=== PATIENT | female | born 1940 | race Two or more races ===

== ENCOUNTER 2018-09-19 22:07 | Inpatient (IN) | payer MEDICARE, BC ==
[~2018-09-19] VITALS: Ht 152.4 cm; Wt 53.1 kg
--- NOTE | 2018-09-19 22:20 | NUR ---
Patient brought in by w/c. Accompanied by 2 relatives. A/Ox4. Speech clear, speaks in complete sentences. No neuro deficits. Patient came in for c/o right hip+wrist pain s/p falling at a family republican. Patient reported that she was trying to help a family member who was vomiting, and they both fell and patient fell on right side. Respiratory even and unlabored, no cough, no sob. No cardiovascular distress, pulses palpable. No GI/ distress noted. Patient inbed at lowest position, side rails upx2, call light within reach. Fall precautions implemented per protocol.
--- NOTE | 2018-09-19 23:07 | NUR ---
Patient went down to CT in stable condition.
[2018-09-19] MEDS ORDERED: vitamin d PO (23:31)
[2018-09-19] MEDS ORDERED: ASPI-605 PO (23:31)
[2018-09-19] MEDS ORDERED: LACT1CAP71 PO (23:31)
[2018-09-19] MEDS ORDERED: LISI-607 PO (23:31)
[2018-09-19] MEDS ORDERED: OMEP40CA37 PO (23:31)
[2018-09-19] MEDS ORDERED: CLID1CAP PO (23:31)
[2018-09-19] MEDS ORDERED: DILT180C66 PO (23:31)
[2018-09-19] MEDS ORDERED: WHEA1POW6 PO (23:31)
[2018-09-19] MEDS ORDERED: SIMV5TAB59 PO (23:31)
[2018-09-19] MEDS ORDERED: VIT1CAPS44 PO (23:31)
[2018-09-19] MEDS ORDERED: ONDANSETRON 4 MG/2 ML VIAL ONE (23:38)
[2018-09-19] MEDS ORDERED: MORPHINE SULFATE 2 MG/1 ML DISP.SYRIN ONE (23:38)
[2018-09-19] MEDS ORDERED: MORPHINE SULFATE 2 MG/1 ML DISP.SYRIN IV ONE (23:45)
[2018-09-19] MEDS ORDERED: ONDANSETRON 4 MG/2 ML VIAL IV ONE (23:45)
--- NOTE | 2018-09-19 23:48 | NUR ---
CORRECTION: IV site for Zofran 4mg, and Morphine 2MG = RFA 20G
--- NOTE | 2018-09-20 00:39 | NUR ---
[facility] called for panel.
[2018-09-20 00:50] LABS: BASOPHILS % (AUTO) 0.2 % (0.0-2.0); EOSINOPHILS % (AUTO) 0.4 % (0.0-7.0); HEMATOCRIT 32.7 % (31.2-41.9); HEMOGLOBIN 10.3 g/dL (10.9-14.3); LYMPHOCYTES # (AUTO) 0.8 K/uL (20.0-40.0); MEAN CORPUSCULAR HEMOGLOBIN 20.2 uug (24.7-32.8); MEAN CORPUSCULAR HGB CONC 32 g/dL (32.3-35.6); MEAN CORPUSCULAR VOLUME 64.1 fL (75.5-95.3); MONOCYTES # (AUTO) 0.5 K/uL (2.0-10.0); NEUTROPHILS # (AUTO) 10.4 K/uL (1.8-8.9); NEUTROPHILS % (AUTO) 88.4 % (38.5-71.5); PLATELET COUNT (AUTO) 221 K/uL (179-408); WHITE BLOOD COUNT (AUTO) 11.8 K/uL (3.8-11.8)
[2018-09-20 00:51] LABS: ALANINE AMINOTRANSFERASE 26 U/L (14-59); ALKALINE PHOSPHATASE 107 U/L (50-136); ASPARTATE AMINOTRANSFERASE 18 U/L (15-37); BILIRUBIN,DIRECT 0.1 mg/dL (0.0-0.2); BILIRUBIN,TOTAL 0.2 mg/dL (0.2-1.0); CARBON DIOXIDE 29 mmol/L (21-32); CHLORIDE 106 mmol/L (98-107); CREATININE 0.8 mg/dL (0.6-1.3); GLUCOSE 132 mg/dL (74-106); UREA NITROGEN, BLOOD 19 mg/dL (7-18)
--- NOTE | 2018-09-20 00:54 | NUR ---
IV SITE FOR NaCL fluid = RFA 20G
[2018-09-20] MEDS ORDERED: IV NS 1000 ML 1,000 ML IV ONE (01:00)
--- NOTE | 2018-09-20 01:12 | NUR ---
Report given to WANDA Khan
[2018-09-20] MEDS ORDERED: CLIDINIUM BR/CHLORDIAZEPOXIDE CAPSULE PO PRN ×2 (01:15→07:30)
[2018-09-20] MEDS ORDERED: HYDROCODONE/APAP 5-325MG TABLET PO PRN (01:15)
[2018-09-20] MEDS ORDERED: Z GUARD REMEDY PASTE 57 GM TUBE TOP PRN (01:15)
[2018-09-20] MEDS ORDERED: ACETAMINOPHEN 325 MG TABLET PO PRN (01:15)
[2018-09-20] MEDS ORDERED: MAGNESIUM HYDROXIDE 30 ML LIQUID UDC PO PRN (01:15)
[2018-09-20 01:17] LABS: BAND % (MANUAL) 1 % (0-10); LYMPHOCYTES % (MANUAL) 6 % (20-40); MONOCYTES % (MANUAL) 5 % (2-10); NEUTROPHILS % (MANUAL) 88 % (42-75)
--- NOTE | 2018-09-20 01:45 | NUR ---
Received patient from ED via gurney accompanied by WANDA Tineo. Patient is alert, awake and oriented x 4 but unable to ambulate due to hip fracture. Patient is on room air, tolerated. She has an IV access on her right forearm, 20g, to ongoing IV fluid of NS at 75mls/hr. Per ED RN, patient refused to have pollock catheter or straight catheterization done, urine sample not yet collected. Noted with splint on the left arm for the left wrist fracture. No complaints of pain at this time. Air mattress and DVT pumps ordered. Patient oriented to unit and how to use call light. Patient is sinus rhythm on tele monitor. Bed in low position, locked, side rails up x2, call light within reach. Noise and lights subdued. Will continue to monitor.
--- NOTE | 2018-09-20 01:51 | NUR ---
Patient transported to TELE in stable condition.
[2018-09-20 02:00] VITALS: BP 139/68
[2018-09-20 05:00] VITALS: BP 122/60
--- NOTE | 2018-09-20 05:39 | NUR ---
Patient slept well. Still with IV access on her right forearm, 20g, to ongoing IV fluid of NS at 75mls/hr. With splint on the left arm for the left wrist fracture. No complaints of pain made. Air mattress and DVT pumps ordered. Ensured safety and comfort.
--- NOTE | 2018-09-20 07:20 | NUR ---
Received patient in bed laying comfortably, alert and oriented, no s/s sob noted at this time, no c/o pain at this time, IV intact and patent, bed in low position, side rails up x2 , bed alarm on. will continue to monitor and provide safety at all time. continue treatment plan.
[2018-09-20 07:50] LABS: *BILIRUBIN,URIN NEGATIVE (NEGATIVE); *BLOOD, URINE 1+ (NEGATIVE); *CLARITY,URINE CLEAR (CLEAR); *COLOR,URINE YELLOW (YELLOW); *KETONES,URINE NEGATIVE (NEGATIVE); *UROBILINOGEN,URINE 0.2 E.U./dl (NORMAL); LEUKOCYTE ESTERASE ,URINE TRACE (NEGATIVE); NITRITE, URINE NEGATIVE (NEGATIVE); PH,URINE 6.5 (5.0-8.0); UGLUCOSE NEGATIVE (NEGATIVE)
[2018-09-20] MEDS: NUTRISOURCE FIBER 4 GM PACKET PO SCH (08:00)
[2018-09-20 08:01] LABS: SQUAMOUS EPITHELIAL CELL,UR FEW /HPF (NONE SEEN)
[2018-09-20 08:02] LABS: BACTERIA,URINE NONE SEEN /HPF (NONE SEEN)
[2018-09-20] MEDS: ASPIRIN EC 81 MG TABLET.DR PO SCH (09:00)
[2018-09-20] MEDS: DILTIAZEM HCL CD 180 MG CAP.SR.24H PO SCH (09:00)
[2018-09-20] MEDS: ACIDOPHILUS/BULGARICUS CHEW TAB PO SCH (09:00)
[2018-09-20] MEDS: BETA CAROTENE/VIT C & E/MIN TABLET PO SCH ×2 (09:00→17:43)
[2018-09-20] MEDS ORDERED: Medication Not On Formulary EA (Lactobacillus Combo No.11 (Probiotic) 1 EACH) PO SCH (09:00)
[2018-09-20] MEDS ORDERED: WHEAT DEXTRIN PO SCH (09:00)
[2018-09-20] MEDS ORDERED: Medication Not On Formulary EA (Vit C/E/Zn/Coppr/Lutein/Zeaxan (Preservision Areds 2 Sof PO SCH (09:00)
[2018-09-20] MEDS ORDERED: Medication Not On Formulary EA (Omeprazole 40 MG) PO SCH (09:00)
[2018-09-20] MEDS: MORPHINE SULFATE 2 MG/1 ML DISP.SYRIN IV PRN ×3 (10:13→20:51)
[2018-09-20 10:51] LABS: IRON, SERUM 40 ug/dL (50-175)
[2018-09-20 11:41] VITALS: BP 151/61
--- NOTE | 2018-09-20 11:45 | NUR ---
PATIENT WENT FOR HAVE CT SCAN
[2018-09-20] MEDS: PANTOPRAZOLE SODIUM 40 MG TABLET.DR PO SCH (14:39)
[2018-09-20] MEDS: LISINOPRIL 5 MG TABLET PO SCH (14:40)
[2018-09-20 14:52] VITALS: BP 145/70
[2018-09-20] MEDS ORDERED: ERGO500040 PO (18:14)
--- NOTE | 2018-09-20 19:00 | NUR ---
patient in bed laying comfortably, alert and oriented, no s/s sob noted at this time, no c/o pain at this time, IV intact and patent, bed in low position, side rails up x2 , bed alarm on. will continue to monitor and provide safety at all time. all needs attended. will continue treatment plan with night night.
--- NOTE | 2018-09-20 19:35 | NUR ---
Received patient awake in bed, not in any form of distress. Noted family members present at bedside. Still with IV access on her right forearm, 20g, to saline lock. Still with splint on the left arm for the left wrist fracture. Noted patient is for surgery tomorrow, consent at chart. Will place patient on NPO after midnight. Patient with complaints of pain, will give PRN medications. Bed in low position, locked, side rails up x 2, call light within reach. Will continue to monitor.
[2018-09-20 20:00] VITALS: BP 139/75
--- NOTE | 2018-09-20 20:00 | NUR ---
Patient has no IV fluids running, verified with Dr. Siddiqui if he will order any fluids for the patient once she in on NPO.
[2018-09-20] MEDS: SIMVASTATIN 10 MG TABLET PO SCH (20:51)
[2018-09-20] MEDS: ONDANSETRON 4 MG/2 ML VIAL IV PRN (20:51)
[2018-09-20] MEDS: IV D5 1/2 NS 1000 ML 1,000 ML IV PRN (21:47)
[2018-09-21] VITALS (7 sets, daily range): BP systolic 124–156; BP diastolic 58–78
[2018-09-21] MEDS: MORPHINE SULFATE 2 MG/1 ML DISP.SYRIN IV PRN ×2 (02:31→10:50)
[2018-09-21] MEDS: ONDANSETRON 4 MG/2 ML VIAL IV PRN ×2 (02:36→18:17)
--- NOTE | 2018-09-21 05:55 | NUR ---
Patient slept intermittently throughout the night. With IV fluid running on right wrist IV access. Maintained NPO after midnight for surgical procedure this morning, consent on chart. With complaints of pain, prn medications given. Ensured safety and comfort. Will continue to monitor.
[2018-09-21] MEDS: PANTOPRAZOLE SODIUM 40 MG TABLET.DR PO SCH (06:30)
--- NOTE | 2018-09-21 07:00 | NUR ---
Upon removal of her dentures, patient gagged and vomited approximately 100ml of dark brown liquid. Event endorsed in detail to incoming day shift nurse. Also endorsed to WANDA Rodgers that per Dr. Lai patient can have cardizem this morning prior to surgery if blood pressure is within normal limits.
[2018-09-21] MEDS ORDERED: PROPOFOL 200 MG/20 ML BOTTLE IV ONE (07:19)
[2018-09-21] MEDS ORDERED: SEVOFLURANE 250 ML BOTTLE IH ONE (07:19)
[2018-09-21] MEDS ORDERED: IV NORMAL SALINE 1000 ML BAG IV ONE (07:19)
[2018-09-21] MEDS ORDERED: EPHEDRINE SULFATE 50 MG/ML AMPUL MC ONE (07:19)
[2018-09-21] MEDS ORDERED: PHENYLEPHRINE 10 MG/1 ML VIAL MC ONE (07:19)
[2018-09-21] MEDS ORDERED: ONDANSETRON 4 MG/2 ML VIAL IV ONE (07:19)
[2018-09-21 07:43] LABS: CARBON DIOXIDE 27 mmol/L (21-32); CHLORIDE 102 mmol/L (98-107); CHOLESTEROL 184 mg/dL (<200); CREATININE 0.7 mg/dL (0.6-1.3); GLUCOSE 129 mg/dL (74-106); HDL CHOLESTEROL 63 mg/dL (40-60); MAGNESIUM 1.9 mg/dL (1.8-2.4); PHOSPHOROUS 3.1 mg/dL (2.5-4.9); POTASSIUM 3.7 mmol/L (3.5-5.1); TRIGLYCERIDES 84 MG/DL (30-150); UREA NITROGEN, BLOOD 9 mg/dL (7-18)
[2018-09-21 07:52] LABS: THYROID STIMULATING HORMONE 0.791 mIU/mL (0.358-3.740)
[2018-09-21] MEDS: NUTRISOURCE FIBER 4 GM PACKET PO SCH (08:00)
[2018-09-21] MEDS: ASPIRIN EC 81 MG TABLET.DR PO SCH (09:00)
[2018-09-21 09:03] LABS: BASOPHILS % (AUTO) 0.5 % (0.0-2.0); EOSINOPHILS % (AUTO) 0.1 % (0.0-7.0); HEMATOCRIT 34.1 % (37-47); HEMOGLOBIN 10.9 G/DL (12.0-16.0); LYMPHOCYTES # (AUTO) 0.5 K/UL (0.8-4.8); LYMPHOCYTES % (AUTO) 4.7 % (20.5-51.5); MEAN CORPUSCULAR HEMOGLOBIN 20.4 UUG (27.0-31.0); MEAN CORPUSCULAR HGB CONC 32 g/dL (32.0-37.0); MEAN CORPUSCULAR VOLUME 64.2 FL (81.0-99.0); MONOCYTES # (AUTO) 0.4 K/UL (0.1-1.30); MONOCYTES % (AUTO) 3.4 % (0.0-11.0); NEUTROPHILS # (AUTO) 9.4 K/UL (1.8-8.9); NEUTROPHILS % (AUTO) 91.3 % (38.5-71.5); PLATELET COUNT (AUTO) 204 K/UL (150-450); RED BLOOD CELL COUNT(AUTO) 5.31 MIL/UL (4.2-5.4); WHITE BLOOD COUNT (AUTO) 10.3 K/UL (4.0-11.2)
[2018-09-21 09:12] LABS: BAND % (MANUAL) 8 % (0-10); LYMPHOCYTES % (MANUAL) 6 % (20-40); MONOCYTES % (MANUAL) 6 % (2-10); NEUTROPHILS % (MANUAL) 80 % (42-75)
[2018-09-21] MEDS: BETA CAROTENE/VIT C & E/MIN TABLET PO SCH ×2 (09:28→17:00)
[2018-09-21] MEDS: ACIDOPHILUS/BULGARICUS CHEW TAB PO SCH (09:28)
[2018-09-21] MEDS: LISINOPRIL 5 MG TABLET PO SCH (09:42)
[2018-09-21] MEDS: DILTIAZEM HCL CD 180 MG CAP.SR.24H PO SCH (09:43)
[2018-09-21] MEDS ORDERED: POLYMYXIN B SULFATE 500,000 UNITS, BACITRACIN 50,000 UNITS, NORMAL SALINE 20 ML MC ONE ×3 (11:00)
[2018-09-21] MEDS ORDERED: BUPIVACAINE 0.25% 30 ML VIAL ONE (11:22)
[2018-09-21] MEDS ORDERED: FENTANYL CITRATE 100 MCG/2 ML AMPUL ONE (14:56)
[2018-09-21] MEDS ORDERED: MIDAZOLAM HCL 2 MG/2 ML VIAL ONE (14:56)
[2018-09-21] MEDS ORDERED: VANCOMYCIN 1000 MG VIAL ONE (15:11)
[2018-09-21 17:14] LABS: EOSINOPHILS % (AUTO) 0.1 % (0.0-7.0); HEMATOCRIT 32.4 % (31.2-41.9); HEMOGLOBIN 10.2 g/dL (10.9-14.3); LYMPHOCYTES # (AUTO) 0.4 K/uL (20.0-40.0); MEAN CORPUSCULAR HEMOGLOBIN 20.3 uug (24.7-32.8); MEAN CORPUSCULAR HGB CONC 32 g/dL (32.3-35.6); MEAN CORPUSCULAR VOLUME 64.3 fL (75.5-95.3); MONOCYTES # (AUTO) 0.5 K/uL (2.0-10.0); MONOCYTES % (AUTO) 4.7 % (0.0-11.0); NEUTROPHILS # (AUTO) 9.5 K/uL (1.8-8.9); NEUTROPHILS % (AUTO) 91.2 % (38.5-71.5); PLATELET COUNT (AUTO) 210 K/uL (179-408); RED BLOOD CELL COUNT(AUTO) 5.04 MIL/uL (3.63-4.92); WHITE BLOOD COUNT (AUTO) 10.4 K/uL (3.8-11.8)
[2018-09-21 17:18] LABS: CARBON DIOXIDE 26 mmol/L (21-32); CHLORIDE 101 mmol/L (98-107); CREATININE 0.7 mg/dL (0.6-1.3); GLUCOSE 156 mg/dL (74-106); POTASSIUM 3.6 mmol/L (3.5-5.1); UREA NITROGEN, BLOOD 10 mg/dL (7-18)
[2018-09-21 17:41] LABS: BAND % (MANUAL) 16 % (0-10); LYMPHOCYTES % (MANUAL) 4 % (20-40); MONOCYTES % (MANUAL) 5 % (2-10); NEUTROPHILS % (MANUAL) 75 % (42-75)
[2018-09-21] MEDS ORDERED: HYDROCODONE/APAP 5-325MG TABLET PO PRN (19:45)
--- NOTE | 2018-09-21 20:00 | NUR ---
received patient and report from WANDA chatman. patient is in bed. patient Has IV line without fluids running. Will clarify orders. Patient complains of pain 7/10. No signs/symptoms of bleeding or infection. Will continue to monitor.
[2018-09-21] MEDS: SIMVASTATIN 10 MG TABLET PO SCH (20:41)
[2018-09-21] MEDS: HYDROCODONE/APAP 5-325MG TABLET PO PRN (20:46)
[2018-09-21] MEDS ORDERED: MUPIROCIN 2% OINT 22 GM TUBE NS SCH (21:00)
[2018-09-21] MEDS: IV D5 1/2 NS 1000 ML 1,000 ML IV PRN (23:50)
[2018-09-22] VITALS (7 sets, daily range): BP systolic 89–117; BP diastolic 39–67
[2018-09-22] MEDS ORDERED: VANCOMYCIN IV 1 G in PREMIXED 0 EACH IV SCH ×2 (04:00→16:00)
--- NOTE | 2018-09-22 04:00 | NUR ---
noted patient blood pressure was 93/17. Patient shows no signs or symptoms of bleeding. Patient denies any dizziness or lethargy. Patient is alert and oriented and denies any distress. Will continue to monitor.
--- NOTE | 2018-09-22 06:19 | NUR ---
received patient in bed. patient complained of left hip pain post surgery. patient was managed and patient rested comfortably through out the night. Patient denies any pain or discomfort at this time. Noted patietn bp to be low at 0400. patient not showing any s/s of bleeding or infection. Will continue to monitor and endorse plan of care to day shift nurse.
[2018-09-22] MEDS: PANTOPRAZOLE SODIUM 40 MG TABLET.DR PO SCH (06:38)
[2018-09-22] MEDS: NUTRISOURCE FIBER 4 GM PACKET PO SCH (08:00)
[2018-09-22] MEDS: DILTIAZEM HCL CD 180 MG CAP.SR.24H PO SCH (08:59)
[2018-09-22] MEDS: ACIDOPHILUS/BULGARICUS CHEW TAB PO SCH (09:00)
[2018-09-22] MEDS: LISINOPRIL 5 MG TABLET PO SCH (09:00)
[2018-09-22] MEDS: BETA CAROTENE/VIT C & E/MIN TABLET PO SCH ×2 (09:00→16:46)
[2018-09-22] MEDS: ASPIRIN EC 81 MG TABLET.DR PO SCH (09:00)
[2018-09-22] MEDS: ENOXAPARIN SODIUM 40 MG/0.4 ML DISP.SYRIN SQ SCH (09:02)
--- NOTE | 2018-09-22 11:22 | NUR ---
SBP in the upper 80's 89/39 with heart rate of 84n patient AAOX4. [place] Nailer Dr. Lai at bedside at this moment and aware. also informed that pt. received her antihypertensives and also medicated for pain as requested. See order hx.
[2018-09-22] MEDS: IV D5 1/2 NS 1000 ML 1,000 ML IV PRN (14:25)
[2018-09-22 15:14] LABS: CARBON DIOXIDE 24 mmol/L (21-32); CHLORIDE 100 mmol/L (98-107); GLUCOSE 157 mg/dL (74-106); POTASSIUM 3.8 mmol/L (3.5-5.1); UREA NITROGEN, BLOOD 20 mg/dL (7-18)
[2018-09-22 15:16] LABS: EOSINOPHILS # (AUTO) 0.1 K/uL (0.0-0.7); EOSINOPHILS % (AUTO) 1.5 % (0.0-7.0); HEMATOCRIT 23.9 % (31.2-41.9); LYMPHOCYTES # (AUTO) 0.8 K/uL (20.0-40.0); LYMPHOCYTES % (AUTO) 14.9 % (20.5-51.5); MEAN CORPUSCULAR HEMOGLOBIN 20.3 uug (24.7-32.8); MEAN CORPUSCULAR HGB CONC 32 g/dL (32.3-35.6); MEAN CORPUSCULAR VOLUME 63.9 fL (75.5-95.3); MONOCYTES # (AUTO) 0.3 K/uL (2.0-10.0); MONOCYTES % (AUTO) 6.5 % (0.0-11.0); NEUTROPHILS # (AUTO) 3.9 K/uL (1.8-8.9); NEUTROPHILS % (AUTO) 77.1 % (38.5-71.5); PLATELET COUNT (AUTO) 162 K/uL (179-408); RED BLOOD CELL COUNT(AUTO) 3.74 MIL/uL (3.63-4.92); WHITE BLOOD COUNT (AUTO) 5.1 K/uL (3.8-11.8)
[2018-09-22 15:26] LABS: HEMOGLOBIN 7.6 g/dL (10.9-14.3)
[2018-09-22 16:16] LABS: BAND % (MANUAL) 6 % (0-10); NEUTROPHILS % (MANUAL) 74 % (42-75)
[2018-09-22 16:17] LABS: EOSINOPHILS % (MANUAL) 2 % (0-8); LYMPHOCYTES % (MANUAL) 13 % (20-40); MONOCYTES % (MANUAL) 5 % (2-10)
--- NOTE | 2018-09-22 19:10 | NUR ---
Received patient awake, alert and oriented with family at bedside. Denies any pain/discomforts at this time. Continue care as planned.
[2018-09-22] MEDS: MIRALAX 17 GM POWD.PACK PO SCH (20:22)
[2018-09-22] MEDS: SIMVASTATIN 10 MG TABLET PO SCH (20:22)
--- NOTE | 2018-09-22 20:47 | NUR ---
MT reported that patient rhythm converted to Afutter, asymptomatic, Vs taken 100/61, HR 96. Denies any s/s. Tried to call Dr Nnamdi Ho several times but line busy. Will attempt again later. Charge Nurse aware.
[2018-09-22 20:57] LABS: BASOPHILS % (AUTO) 0.3 % (0.0-2.0); EOSINOPHILS # (AUTO) 0.1 K/uL (0.0-0.7); EOSINOPHILS % (AUTO) 2.6 % (0.0-7.0); HEMATOCRIT 24.2 % (31.2-41.9); HEMOGLOBIN 7.8 g/dL (10.9-14.3); LYMPHOCYTES # (AUTO) 1.1 K/uL (20.0-40.0); MEAN CORPUSCULAR HEMOGLOBIN 20.6 uug (24.7-32.8); MEAN CORPUSCULAR HGB CONC 32 g/dL (32.3-35.6); MEAN CORPUSCULAR VOLUME 64.2 fL (75.5-95.3); MONOCYTES # (AUTO) 0.5 K/uL (2.0-10.0); MONOCYTES % (AUTO) 9.1 % (0.0-11.0); NEUTROPHILS # (AUTO) 3.4 K/uL (1.8-8.9); PLATELET COUNT (AUTO) 161 K/uL (179-408); RED BLOOD CELL COUNT(AUTO) 3.77 MIL/uL (3.63-4.92); WHITE BLOOD COUNT (AUTO) 5.1 K/uL (3.8-11.8)
--- NOTE | 2018-09-22 21:40 | NUR ---
Called Dr Lai regarding patient heart rhythm but been instructed to call the bath solution maker manager council. Attempted to Call Dr. Ho but because of heavy calling unable to accept call at this time.
--- NOTE | 2018-09-22 22:15 | NUR ---
Left message to [employer] answering service. Anticipating oJsselyn Persaud NP to return the call.
--- NOTE | 2018-09-22 22:45 | NUR ---
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 Anticipating call from her.
--- NOTE | 2018-09-22 22:51 | NUR ---
Patient converted to SR now per MT. Patient sleeping at this time.
--- NOTE | 2018-09-22 23:20 | NUR ---
Dr Pastrana called back with no new order given. Charge nurse made aware.
[2018-09-23 03:23] VITALS: BP 107/61
[2018-09-23] MEDS: IV D5 1/2 NS 1000 ML 1,000 ML IV PRN (04:56)
[2018-09-23] MEDS: PANTOPRAZOLE SODIUM 40 MG TABLET.DR PO SCH (06:13)
[2018-09-23 07:16] LABS: BASOPHILS % (AUTO) 0.3 % (0.0-2.0); EOSINOPHILS # (AUTO) 0.2 K/uL (0.0-0.7); EOSINOPHILS % (AUTO) 4.3 % (0.0-7.0); HEMATOCRIT 22.2 % (31.2-41.9); LYMPHOCYTES % (AUTO) 21.2 % (20.5-51.5); MEAN CORPUSCULAR HEMOGLOBIN 20.5 uug (24.7-32.8); MEAN CORPUSCULAR HGB CONC 32 g/dL (32.3-35.6); MEAN CORPUSCULAR VOLUME 63.9 fL (75.5-95.3); MONOCYTES # (AUTO) 0.4 K/uL (2.0-10.0); MONOCYTES % (AUTO) 7.6 % (0.0-11.0); NEUTROPHILS # (AUTO) 3.2 K/uL (1.8-8.9); NEUTROPHILS % (AUTO) 66.6 % (38.5-71.5); PLATELET COUNT (AUTO) 167 K/uL (179-408); RED BLOOD CELL COUNT(AUTO) 3.47 MIL/uL (3.63-4.92); WHITE BLOOD COUNT (AUTO) 4.8 K/uL (3.8-11.8)
[2018-09-23 07:22] LABS: HEMOGLOBIN 7.1 g/dL (10.9-14.3)
[2018-09-23 07:29] LABS: CARBON DIOXIDE 26 mmol/L (21-32); CHLORIDE 105 mmol/L (98-107); CREATININE 0.8 mg/dL (0.6-1.3); GLUCOSE 111 mg/dL (74-106); MAGNESIUM 2.2 mg/dL (1.8-2.4); PHOSPHOROUS 2.7 mg/dL (2.5-4.9); POTASSIUM 3.8 mmol/L (3.5-5.1); UREA NITROGEN, BLOOD 13 mg/dL (7-18)
[2018-09-23 08:00] VITALS: BP 121/62
[2018-09-23] MEDS: BETA CAROTENE/VIT C & E/MIN TABLET PO SCH (09:23)
[2018-09-23] MEDS: HYDROCODONE/APAP 5-325MG TABLET PO PRN ×2 (09:23→13:53)
[2018-09-23] MEDS: MIRALAX 17 GM POWD.PACK PO SCH (09:23)
[2018-09-23] MEDS: ACIDOPHILUS/BULGARICUS CHEW TAB PO SCH (09:23)
[2018-09-23] MEDS: DILTIAZEM HCL CD 180 MG CAP.SR.24H PO SCH (09:24)
[2018-09-23] MEDS: ASPIRIN EC 81 MG TABLET.DR PO SCH (09:24)
[2018-09-23] MEDS: ENOXAPARIN SODIUM 40 MG/0.4 ML DISP.SYRIN SQ SCH (09:28)
[2018-09-23] MEDS: NUTRISOURCE FIBER 4 GM PACKET PO SCH (09:40)
--- NOTE | 2018-09-23 10:30 | NUR ---
Patient received Glen 5mg/325 1 tab po prior to ambulation, pain level 5/10, and remains 4/5 after ambulation. Biju Pena RN
[2018-09-23] MEDS ORDERED: ENOX40DI SQ (10:57)
[2018-09-23] MEDS ORDERED: PANT40TA2 PO (10:57)
[2018-09-23] MEDS ORDERED: BETA1TAB19 PO (10:57)
[2018-09-23] MEDS ORDERED: POLY17PO4 PO (10:57)
[2018-09-23] MEDS ORDERED: Wheat Dextrin PO (10:57)
[2018-09-23] MEDS ORDERED: SIMV10TA6 PO (10:57)
[2018-09-23 11:00] VITALS: BP 154/55
--- NOTE | 2018-09-23 11:00 | NUR ---
Patient seen by PT with daughter at bedside. Patient has a left hand splint, that was removed by surgeon yesterday. Physical Therapy walked the patient with a cane only due to limitation of left hand. Biju Pena RN
--- NOTE | 2018-09-23 16:00 | NUR ---
Patient transferred to Acute Rehab, and report endorsed to Adriana MUÑOZ receiving patient. Biju Pena RN
== END 2018-09-23 16:00 | DRG 481 ==
LOC: ER 22:11 → TELE3 09-20 01:16
PROVIDERS: ADMIT Nurse Practitioner Acute Care; ATTEND Internal Medicine
PROC: 0QS704Z Reposition Left Upper Femur with Internal Fixation Device, Open Approach (ICD-10-PCS; principal; 2018-09-21)
DX: M80.852A Other osteoporosis with current pathological fracture, left femur, initial encounter for fracture (principal); S59.202A Unspecified physeal fracture of lower end of radius, left arm, initial encounter for closed fracture; D68.59 Other primary thrombophilia; D62 Acute posthemorrhagic anemia; I48.92 Unspecified atrial flutter; W17.89XA Other fall from one level to another, initial encounter; Y93.89 Activity, other specified; Y92.012 Bathroom of single-family (private) house as the place of occurrence of the external cause; I10 Essential (primary) hypertension; S22.43XD Multiple fractures of ribs, bilateral, subsequent encounter for fracture with routine healing; W19.XXXD Unspecified fall, subsequent encounter; K64.9 Unspecified hemorrhoids; R73.03 Prediabetes; Z74.09 Other reduced mobility; M19.90 Unspecified osteoarthritis, unspecified site; M50.30 Other cervical disc degeneration, unspecified cervical region; Z86.79 Personal history of other diseases of the circulatory system; H35.30 Unspecified macular degeneration; K21.9 Gastro-esophageal reflux disease without esophagitis; K57.90 Diverticulosis of intestine, part unspecified, without perforation or abscess without bleeding; Z91.81 History of falling; Z79.82 Long term (current) use of aspirin
CPT/HCPCS: 36415; 70030-TC; 70450; 71045; 71250; 72125; 72170; 73110; 73502; 73503; 73551; 73700; 82378; 83550; 83735; 84100; 84443; 85025; 85730; 86850; 86900; 86901; 86920; 87086; 93005; 93307; 97110; 97116; 97530; A4663; C1713; G0378; J1650; J2250; J2270; J2370; J2405; J3010; J3370; J3490; J7030; J7042; P9016-BL; P9021

== ENCOUNTER 2018-09-23 17:03 | Inpatient (IN) | payer MEDICARE, BC ==
[~2018-09-23] VITALS: Ht 152.4 cm; Wt 52.2 kg
--- NOTE | 2018-09-23 16:45 | NUR ---
BROUGHT TO THE UNIT WITH DAUGHTER AT BEDSIDE. 1UPRBC STARTED INFUSING WELL NO REACTION NOTED. VSS. ORIENTED TO UNIT AND SURROUNDINGS. DINNER TRAY RECEIVED FROM 3RD FLOOR. UNABLE TO TAKE PICS OF L HIP D/T ORIGINAL SURGICAL DRSG IN PLACE. THE DOC WILL CHANGE THE ORIGINAL DRSG
[~2018-09-23 17:03] MED LIST: ASPI-605 PO; BETA1TAB19 PO; CLID1CAP PO; DILT180C66 PO; ENOX40DI SQ; ERGO500040 PO; LACT1CAP71 PO; LISI-607 PO; OMEP40CA37 PO; PANT40TA2 PO; POLY17PO4 PO; SIMV10TA6 PO; SIMV5TAB59 PO; VIT1CAPS44 PO; WHEA1POW6 PO; Wheat Dextrin PO
[2018-09-23] MEDS ORDERED: ERGOCALCIFEROL 50,000 UNIT CAPSULE PO SCH (20:00)
--- NOTE | 2018-09-23 20:29 | NUR ---
Received pt in bed, AAO x 4 with family members at bedside. No acute distress noted. Verbally responsive and able to make needs known. C/O pain on her left hip 6/[address] Castellanos made aware with new orders for [place] 5-325 mg PO Q4 prn, order noted and carried out. All safety measures and fall precautions maintained. Call light and all personal belongings within reach. Will continue to monitor.
--- NOTE | 2018-09-23 20:29 | NUR ---
Narayanan cath noted, draining well clear yellow urine into bag. Safety maintained. Call light within reach. Will continue to monitor.
[2018-09-23 20:37] VITALS: BP 136/44
[2018-09-23] MEDS: SIMVASTATIN 10 MG TABLET PO SCH (21:45)
[2018-09-23] MEDS: HYDROCODONE/APAP 5-325MG TABLET PO PRN (21:47)
--- NOTE | 2018-09-23 21:48 | NUR ---
Ergocalciferol 68378 units non admin. Per MD order, due to be given Sundays @ 0900 & medication not available in cassette/pyxis
[2018-09-24] MEDS: PANTOPRAZOLE SODIUM 40 MG TABLET.DR PO SCH (06:03)
[2018-09-24 06:29] VITALS: BP 116/65
[2018-09-24 07:52] VITALS: BP 123/82
[2018-09-24] MEDS: BETA CAROTENE/VIT C & E/MIN TABLET PO SCH ×2 (08:16→17:57)
[2018-09-24] MEDS: LISINOPRIL 5 MG TABLET PO SCH (08:17)
[2018-09-24] MEDS: ASPIRIN EC 81 MG TABLET.DR PO SCH (08:17)
[2018-09-24] MEDS: HYDROCODONE/APAP 5-325MG TABLET PO PRN ×2 (08:17→20:51)
[2018-09-24] MEDS: MIRALAX 17 GM POWD.PACK PO SCH (08:17)
[2018-09-24] MEDS: DILTIAZEM HCL CD 180 MG CAP.SR.24H PO SCH (08:17)
[2018-09-24] MEDS: ENOXAPARIN SODIUM 40 MG/0.4 ML DISP.SYRIN SQ SCH (08:31)
[2018-09-24] MEDS ORDERED: CLIDINIUM BR/CHLORDIAZEPOXIDE CAPSULE PO SCH (09:00)
--- NOTE | 2018-09-24 09:30 | NUR ---
Up with occupational therapy, tolerating well. Able to ambulate with maximum assist. Not in any form of distress, with tolerable pain levels. [place] PRN given prior to therapy.
--- NOTE | 2018-09-24 13:30 | NUR ---
INTERDISCIPLINARY TEAM CONFERENCE
--- NOTE | 2018-09-24 14:00 | NUR ---
Asked Dr about Narayanan catheter, Dr said to keep it and monitor and evaluate once patient gains more mobility.
--- NOTE | 2018-09-24 15:36 | NUR ---
Received patient, awake, alert x4. With pain over left leg/hip area. Not in any form of distress. Original dressing intact, dry and clean. With patent and intact Narayanan draining to yellow colored urine. Addendum: 09/24/18 at 1542 by HONG LANDERS RN RN Time of note should be at 8:30 AM
[2018-09-24 16:00] VITALS: BP 113/56
[2018-09-24 19:24] VITALS: BP 135/71
--- NOTE | 2018-09-24 19:35 | NUR ---
PATIENT ALERT AND ORIENTED X4. FAMILY AT BEDSIDE. FILIPINO SPEAKING, BUT ABLE TO MAKE NEEDS KNOWN IN [place]. C/O PAIN UPON ASSESSMENT. WILL MEDICATE. PFEIFFER TAKEN UP PER MD ORDER. WILL MONITOR. NO C/O SOB OR DISTRESS. LEFT HIP DRESSING C/D/I. SIDE RAILS UP BILATERALLY FOR SAFETY. CALL LIGHT AND FREQUENTLY USED TIMES WITHIN. WILL CONTINUE TO MONITOR.
[2018-09-24] MEDS: SIMVASTATIN 10 MG TABLET PO SCH (20:51)
--- NOTE | 2018-09-24 22:53 | NUR ---
PATIENT REQUEST BEDPAN FOR URINE. ABLE TO OUTPUT 200 ML OF URINE WITH SCANT STOOL. WILL CONTINUE TO MONITOR.
[2018-09-25 05:50] VITALS: BP 135/60
[2018-09-25] MEDS: PANTOPRAZOLE SODIUM 40 MG TABLET.DR PO SCH (06:04)
[2018-09-25 06:14] LABS: BASOPHILS % (AUTO) 0.4 % (0.0-2.0); EOSINOPHILS # (AUTO) 0.1 K/uL (0.0-0.7); EOSINOPHILS % (AUTO) 0.8 % (0.0-7.0); HEMATOCRIT 26.8 % (31.2-41.9); HEMOGLOBIN 8.8 g/dL (10.9-14.3); LYMPHOCYTES # (AUTO) 0.7 K/uL (20.0-40.0); LYMPHOCYTES % (AUTO) 7.3 % (20.5-51.5); MEAN CORPUSCULAR HEMOGLOBIN 22.1 uug (24.7-32.8); MEAN CORPUSCULAR HGB CONC 33 g/dL (32.3-35.6); MEAN CORPUSCULAR VOLUME 67.5 fL (75.5-95.3); MONOCYTES # (AUTO) 0.5 K/uL (2.0-10.0); MONOCYTES % (AUTO) 5.3 % (0.0-11.0); NEUTROPHILS # (AUTO) 8.4 K/uL (1.8-8.9); NEUTROPHILS % (AUTO) 86.2 % (38.5-71.5); PLATELET COUNT (AUTO) 187 K/uL (179-408); RED BLOOD CELL COUNT(AUTO) 3.97 MIL/uL (3.63-4.92); WHITE BLOOD COUNT (AUTO) 9.7 K/uL (3.8-11.8)
[2018-09-25 06:25] LABS: CARBON DIOXIDE 29 mmol/L (21-32); CHLORIDE 101 mmol/L (98-107); CREATININE 0.8 mg/dL (0.6-1.3); GLUCOSE 105 mg/dL (74-106); UREA NITROGEN, BLOOD 15 mg/dL (7-18)
--- NOTE | 2018-09-25 06:39 | NUR ---
PATIENT SLEPT INTERMITTENTLY DURING SHIFT. VOIDED 4 TIMES DURING SHIFT WITH BEDPAN. ALL DUE MEDICATIONS GIVEN-TOLERATED WELL. LEFT HIP SURGICAL DRESSING KEPT C/D/I. C/O PAIN THIS MORNING IN LEFT HIP. MORNING SHIFT TO MEDICATE PRIOR TO PT PER PATIENT REQUEST. SIDE RAILS UP BILATERALLY FOR SAFETY. CALL LIGHT AND FREQUENTLY USED ITEMS WITHIN REACH. WILL ENDORSE TO ONCOMING SHIFT ACCORDINGLY.
[2018-09-25] MEDS: ASPIRIN EC 81 MG TABLET.DR PO SCH (08:59)
[2018-09-25] MEDS: HYDROCODONE/APAP 5-325MG TABLET PO PRN ×2 (08:59→21:49)
[2018-09-25 09:00] VITALS: BP 131/64
[2018-09-25] MEDS: MIRALAX 17 GM POWD.PACK PO SCH (09:00)
[2018-09-25] MEDS ORDERED: CLIDINIUM BR/CHLORDIAZEPOXIDE CAPSULE PO SCH (09:00)
[2018-09-25] MEDS: BETA CAROTENE/VIT C & E/MIN TABLET PO SCH ×2 (09:00→17:39)
[2018-09-25] MEDS: DILTIAZEM HCL CD 180 MG CAP.SR.24H PO SCH (09:00)
[2018-09-25] MEDS: LISINOPRIL 5 MG TABLET PO SCH (09:00)
[2018-09-25] MEDS: ENOXAPARIN SODIUM 40 MG/0.4 ML DISP.SYRIN SQ SCH (09:03)
[2018-09-25 15:43] VITALS: BP 105/63
--- NOTE | 2018-09-25 19:25 | NUR ---
PATIENT ALERT AND ORIENTED X 4. FAMILY AT BEDSIDE. NO C/O PAIN, SOB OR DISTRESS AT ASSESSMENT. LEFT HIP DRESSING C/D/I. SIDE RAILS UP BILATERALLY FOR SAFETY. CALL LIGHT AND FREQUENTLY USED TIMES WITHIN. WILL CONTINUE TO MONITOR.
[2018-09-25 20:43] VITALS: BP 118/64
[2018-09-25] MEDS: SIMVASTATIN 10 MG TABLET PO SCH (20:57)
[2018-09-26 04:30] VITALS: BP 122/63
[2018-09-26] MEDS: PANTOPRAZOLE SODIUM 40 MG TABLET.DR PO SCH (06:02)
--- NOTE | 2018-09-26 06:39 | NUR ---
PATIENT SLEPT WELL DURING SHIFT. ALL DUE MEDICATIONS GIVEN-TOLERATED WELL. LEFT HIP SURGICAL DRESSING KEPT C/D/I. C/O PAIN THIS DURING FOOD SERVICE LEAD. PATIENT MEDICATED. SIDE RAILS UP BILATERALLY FOR SAFETY. CALL LIGHT AND FREQUENTLY USED ITEMS WITHIN REACH. WILL ENDORSE TO ONCOMING SHIFT ACCORDINGLY.
[2018-09-26 07:00] LABS: BASOPHILS # (AUTO) 0.1 K/uL (0.0-8.0); BASOPHILS % (AUTO) 0.8 % (0.0-2.0); EOSINOPHILS # (AUTO) 0.1 K/uL (0.0-0.7); EOSINOPHILS % (AUTO) 1.8 % (0.0-7.0); HEMATOCRIT 25.3 % (31.2-41.9); HEMOGLOBIN 8.3 g/dL (10.9-14.3); LYMPHOCYTES # (AUTO) 1.2 K/uL (20.0-40.0); LYMPHOCYTES % (AUTO) 17.5 % (20.5-51.5); MEAN CORPUSCULAR HGB CONC 33 g/dL (32.3-35.6); MEAN CORPUSCULAR VOLUME 67.4 fL (75.5-95.3); MONOCYTES # (AUTO) 0.4 K/uL (2.0-10.0); MONOCYTES % (AUTO) 5.7 % (0.0-11.0); NEUTROPHILS # (AUTO) 5.1 K/uL (1.8-8.9); NEUTROPHILS % (AUTO) 74.2 % (38.5-71.5); PLATELET COUNT (AUTO) 192 K/uL (179-408); RED BLOOD CELL COUNT(AUTO) 3.76 MIL/uL (3.63-4.92); WHITE BLOOD COUNT (AUTO) 6.8 K/uL (3.8-11.8)
[2018-09-26 07:51] VITALS: BP 113/57
[2018-09-26] MEDS: ASPIRIN EC 81 MG TABLET.DR PO SCH (08:35)
[2018-09-26] MEDS: ERGOCALCIFEROL 50,000 UNIT CAPSULE PO SCH (08:36)
[2018-09-26] MEDS: BETA CAROTENE/VIT C & E/MIN TABLET PO SCH ×2 (08:36→16:40)
[2018-09-26] MEDS: LISINOPRIL 5 MG TABLET PO SCH (08:37)
[2018-09-26] MEDS: MIRALAX 17 GM POWD.PACK PO SCH (08:37)
[2018-09-26] MEDS: DILTIAZEM HCL CD 180 MG CAP.SR.24H PO SCH (08:38)
[2018-09-26] MEDS: ENOXAPARIN SODIUM 40 MG/0.4 ML DISP.SYRIN SQ SCH (08:49)
--- NOTE | 2018-09-26 10:09 | NUR ---
Received pt. on bed, comfortable in no distress. A/Ox3-4 verbally responsive and able to make her needs known. Denies CP or SOB. All due medications administered as ordered and tolerated well. Lt hip dressing C/D/I. On air matress for skin mgt/pressure redistribution. RFA PIV patent and intact. No s/sx of bleeding, currently on Lovenox. All pt. needs attended and met promptly. Safety measures in place. Call light and all frequently used items within pt. reach.
--- NOTE | 2018-09-26 13:30 | NUR ---
INDIVIDUALIZED OVERALL PLAN OF CARE
[2018-09-26 16:00] VITALS: BP 97/61
--- NOTE | 2018-09-26 18:12 | NUR ---
End of shift note: No significant change during this shift. No sign of acute distress or SOB was noted. Kept pt clean and dry throughout this shift. Safety measures maintained. All needs attended and met promptly. Bed in low position, brake on, side rails up x2 as an enabler. Call light and all frequently used items within pt. reach. Will endorse to next shift accordingly
[2018-09-26] MEDS: SIMVASTATIN 10 MG TABLET PO SCH (20:23)
[2018-09-26 20:53] VITALS: BP 100/50
[2018-09-26] MEDS: HYDROCODONE/APAP 5-325MG TABLET PO PRN (23:02)
[2018-09-27] VITALS (12 sets, daily range): BP systolic 99–122; BP diastolic 51–65
--- NOTE | 2018-09-27 00:09 | NUR ---
Received pt resting and watching tv at the beginning of shift. AAO x3. No acute distress noted. C/o 12/08 pain on the left hip. [place] PRN and other due med given as ordered. Assisted to the bathroom using walker, x1 void and bm. Safety measures maintained. Call light and personal belongings within reach. Will continue to monitor. Addendum: 09/27/18 at 0013 by Thanh Jc RN 10/08 pain
[2018-09-27] MEDS: PANTOPRAZOLE SODIUM 40 MG TABLET.DR PO SCH (06:02)
[2018-09-27 07:17] LABS: BASOPHILS % (AUTO) 0.3 % (0.0-2.0); EOSINOPHILS # (AUTO) 0.1 K/uL (0.0-0.7); EOSINOPHILS % (AUTO) 2.2 % (0.0-7.0); HEMATOCRIT 24.2 % (31.2-41.9); HEMOGLOBIN 7.8 g/dL (10.9-14.3); LYMPHOCYTES % (AUTO) 16.3 % (20.5-51.5); MEAN CORPUSCULAR HEMOGLOBIN 21.8 uug (24.7-32.8); MEAN CORPUSCULAR HGB CONC 32 g/dL (32.3-35.6); MONOCYTES # (AUTO) 0.5 K/uL (2.0-10.0); MONOCYTES % (AUTO) 8.2 % (0.0-11.0); NEUTROPHILS # (AUTO) 4.5 K/uL (1.8-8.9); PLATELET COUNT (AUTO) 208 K/uL (179-408); RED BLOOD CELL COUNT(AUTO) 3.56 MIL/uL (3.63-4.92); WHITE BLOOD COUNT (AUTO) 6.2 K/uL (3.8-11.8)
[2018-09-27] MEDS: HYDROCODONE/APAP 5-325MG TABLET PO PRN ×2 (08:29→22:01)
[2018-09-27] MEDS: ASPIRIN EC 81 MG TABLET.DR PO SCH (08:29)
[2018-09-27] MEDS: BETA CAROTENE/VIT C & E/MIN TABLET PO SCH ×2 (08:29→17:39)
[2018-09-27] MEDS: MIRALAX 17 GM POWD.PACK PO SCH (08:30)
[2018-09-27] MEDS: DILTIAZEM HCL CD 180 MG CAP.SR.24H PO SCH (08:30)
[2018-09-27] MEDS: LISINOPRIL 5 MG TABLET PO SCH (08:30)
[2018-09-27] MEDS: ENOXAPARIN SODIUM 40 MG/0.4 ML DISP.SYRIN SQ SCH (08:31)
[2018-09-27 08:45] LABS: BAND % (MANUAL) 1 % (0-10); EOSINOPHILS % (MANUAL) 1 % (0-8); LYMPHOCYTES % (MANUAL) 14 % (20-40); MONOCYTES % (MANUAL) 11 % (2-10); NEUTROPHILS % (MANUAL) 73 % (42-75)
--- NOTE | 2018-09-27 09:30 | NUR ---
Received pt. on bed, comfortable in no distress. A/Ox4 verbally responsive and able to make her needs known. Denies CP or SOB. All due medications administered as ordered and tolerated well. Lt hip dressing C/D/I. On air mattress for pressure redistribution. RFA PIV patent and intact. No s/sx of bleeding, currently on Lovenox. All pt. needs attended and met promptly. Safety measures in place. Call light and all frequently used items within pt. reach.
--- NOTE | 2018-09-27 18:08 | NUR ---
End of shift note: No sign of acute distress or SOB was noted. Received 1 Unit of RBC today with no ASE, pt. tolerated transfusion well. Kept pt clean and dry throughout this shift. Safety measures maintained. All needs attended and met promptly. Bed in low position, brake on, side rails up x2 as an enabler. Call light and all frequently used items within pt. reach. Will endorse to next shift accordingly
[2018-09-27] MEDS: SIMVASTATIN 10 MG TABLET PO SCH (20:50)
[2018-09-28 04:30] VITALS: BP 118/65
[2018-09-28] MEDS: PANTOPRAZOLE SODIUM 40 MG TABLET.DR PO SCH (06:13)
[2018-09-28 07:11] LABS: BASOPHILS % (AUTO) 0.3 % (0.0-2.0); EOSINOPHILS # (AUTO) 0.1 K/uL (0.0-0.7); EOSINOPHILS % (AUTO) 2.1 % (0.0-7.0); HEMATOCRIT 27.6 % (31.2-41.9); LYMPHOCYTES # (AUTO) 0.8 K/uL (20.0-40.0); LYMPHOCYTES % (AUTO) 12.6 % (20.5-51.5); MEAN CORPUSCULAR HGB CONC 33 g/dL (32.3-35.6); MEAN CORPUSCULAR VOLUME 70.6 fL (75.5-95.3); MONOCYTES # (AUTO) 0.6 K/uL (2.0-10.0); MONOCYTES % (AUTO) 9.3 % (0.0-11.0); NEUTROPHILS # (AUTO) 4.6 K/uL (1.8-8.9); NEUTROPHILS % (AUTO) 75.7 % (38.5-71.5); PLATELET COUNT (AUTO) 235 K/uL (179-408); RED BLOOD CELL COUNT(AUTO) 3.91 MIL/uL (3.63-4.92); WHITE BLOOD COUNT (AUTO) 6.1 K/uL (3.8-11.8)
[2018-09-28 07:27] LABS: CARBON DIOXIDE 29 mmol/L (21-32); CHLORIDE 101 mmol/L (98-107); CREATININE 0.8 mg/dL (0.6-1.3); GLUCOSE 94 mg/dL (74-106); PHOSPHOROUS 3.7 mg/dL (2.5-4.9); POTASSIUM 4.2 mmol/L (3.5-5.1); UREA NITROGEN, BLOOD 18 mg/dL (7-18)
[2018-09-28 08:00] VITALS: BP 117/61
[2018-09-28] MEDS: BETA CAROTENE/VIT C & E/MIN TABLET PO SCH ×2 (08:27→16:11)
[2018-09-28] MEDS: DILTIAZEM HCL CD 180 MG CAP.SR.24H PO SCH (08:27)
[2018-09-28] MEDS: LISINOPRIL 5 MG TABLET PO SCH (08:27)
[2018-09-28] MEDS: ASPIRIN EC 81 MG TABLET.DR PO SCH (08:27)
[2018-09-28] MEDS: MIRALAX 17 GM POWD.PACK PO SCH (08:28)
[2018-09-28] MEDS: ENOXAPARIN SODIUM 40 MG/0.4 ML DISP.SYRIN SQ SCH (08:29)
--- NOTE | 2018-09-28 09:04 | NUR ---
Received pt. on bed, comfortable in no distress. A/Ox4 verbally responsive and able to make her needs known. Denies CP or SOB. All due medications administered as ordered and tolerated well. Lt hip original dressing C/D/I. On air mattress for pressure redistribution. RFA PIV patent and intact. All pt. needs attended and met promptly. Safety measures in place. Call light and all frequently used items within pt. reach.
[2018-09-28 16:03] VITALS: BP 125/59
--- NOTE | 2018-09-28 18:12 | NUR ---
Received pt. on bed, comfortable in no distress. A/Ox4 verbally responsive and able to make her needs known. Denies CP or SOB. All due medications administered as ordered and tolerated well. Lt hip dressing C/D/I. On air mattress for pressure redistribution. RFA PIV patent and intact. COUNCILMAN made aware of slight hemorrhoid/rectal bleed, ordered Hgb and Hct in AM. All pt. needs attended and met promptly. Safety measures in place. Call light and all frequently used items within pt. reach. Addendum: 10/03/18 at 0913 by YOSEPH BAJWA RN Duplicate charting. Disregard
--- NOTE | 2018-09-28 19:34 | NUR ---
Patient alert and oriented x 4. No C/O pain, distress, or SOB. Lt hip dressing C/D/I. On air mattress for pressure redistribution. RFA IV patent and intact. Side rails up bilaterally for safety. Call light and all frequently used items within pt. reach. Will continue to monitor.
[2018-09-28 20:03] VITALS: BP 121/59
[2018-09-28] MEDS: SIMVASTATIN 10 MG TABLET PO SCH (21:29)
[2018-09-28] MEDS: HYDROCODONE/APAP 5-325MG TABLET PO PRN (21:29)
[2018-09-29 04:52] VITALS: BP 110/57
[2018-09-29] MEDS: PANTOPRAZOLE SODIUM 40 MG TABLET.DR PO SCH (06:01)
--- NOTE | 2018-09-29 06:34 | NUR ---
Patient slept well during shift. C/O pain this morning in left wrist. Patient stated that she has had a fracture in this area prior, and the wrist once had a splint on it. Will inform of development. All due medications given-tolerated well. Side rails up bilaterally for safety. Call light and frequently used items within reach. Will endorse to oncoming shift accordingly.
[2018-09-29 07:30] LABS: HEMOGLOBIN 9.6 g/dL (10.9-14.3)
[2018-09-29 08:00] VITALS: BP 110/65
[2018-09-29] MEDS: ASPIRIN EC 81 MG TABLET.DR PO SCH (08:27)
[2018-09-29] MEDS: DILTIAZEM HCL CD 180 MG CAP.SR.24H PO SCH (08:27)
[2018-09-29] MEDS: BETA CAROTENE/VIT C & E/MIN TABLET PO SCH ×2 (08:28→16:56)
[2018-09-29] MEDS: HYDROCODONE/APAP 5-325MG TABLET PO PRN ×3 (08:29→21:58)
[2018-09-29] MEDS: MIRALAX 17 GM POWD.PACK PO SCH (08:31)
[2018-09-29] MEDS: ENOXAPARIN SODIUM 40 MG/0.4 ML DISP.SYRIN SQ SCH (08:31)
--- NOTE | 2018-09-29 11:11 | NUR ---
Patient continue therapy for ambulation, ADL, muscle weakness and transfer ability. Continue on pain management prior therapy. not in distress. HGB 9.6 this morning. no complaint of pain/discomfort. no signs of bleeding noted. will continue monitor
[2018-09-29 16:21] VITALS: BP 89/48
[2018-09-29 20:07] VITALS: BP 112/60
--- NOTE | 2018-09-29 20:35 | NUR ---
Received patine in bed. Alert and oriented x 4. No C/O pain, distress, or SOB. Lt hip dressing C/D/I. On air mattress for pressure redistribution. RFA IV removed. Side rails up bilaterally for safety. Call light and frequently used itmes within reach. Will continue to monitor.
[2018-09-29] MEDS: SIMVASTATIN 10 MG TABLET PO SCH (21:57)
[2018-09-30 05:17] VITALS: BP 111/56
[2018-09-30] MEDS: PANTOPRAZOLE SODIUM 40 MG TABLET.DR PO SCH (06:03)
--- NOTE | 2018-09-30 06:31 | NUR ---
No major complaints during shift. Patient slept well. All due medications given-tolerated well. Side rails up bilaterally for safety. Call light and frequently used items within reach. Will endorse to oncoming shift accordingly.
[2018-09-30 08:00] VITALS: BP 118/69
[2018-09-30] MEDS: DILTIAZEM HCL CD 180 MG CAP.SR.24H PO SCH (08:18)
[2018-09-30] MEDS: HYDROCODONE/APAP 5-325MG TABLET PO PRN ×2 (08:18→21:56)
[2018-09-30] MEDS: ASPIRIN EC 81 MG TABLET.DR PO SCH (08:18)
[2018-09-30] MEDS: BETA CAROTENE/VIT C & E/MIN TABLET PO SCH ×2 (08:18→16:28)
[2018-09-30] MEDS: MIRALAX 17 GM POWD.PACK PO SCH (08:19)
[2018-09-30] MEDS: ENOXAPARIN SODIUM 40 MG/0.4 ML DISP.SYRIN SQ SCH (08:26)
--- NOTE | 2018-09-30 13:43 | NUR ---
Patient continue therapy for ambulation, ADL, transfer and muscle weakness. Continue pain management norco 5-325mg 1 tab prior to therapy and left hip fracture. not in distress. Continue lovenox for DVT PPX. tolerated well no signs of bleeding. not in distress. will continue monitor
[2018-09-30 16:00] VITALS: BP 90/50
[2018-09-30 20:11] VITALS: BP 101/43
[2018-09-30] MEDS: SIMVASTATIN 10 MG TABLET PO SCH (21:08)
[2018-10-01 04:30] VITALS: BP 107/47
--- NOTE | 2018-10-01 05:07 | NUR ---
PATIENT SLEPT COMFORTABLY ALL NIGHT. ALL PRESCRIBED MEDICATIONS GIVEN ORDERED AND TOLERATED WELL. SAFETY AND FALL PRECAUTIONS IN PLACE. BED IN LOWEST POSITION WITH BRAKE APPLIED. 2 SIDE RAILS UP AND IN LOCKED POSITION. CALL LIGHT WITHIN REACH AT ALL TIMES. PATIENT KEPT WARM AND DRY THROUGHOUT SHIFT.
[2018-10-01] MEDS: PANTOPRAZOLE SODIUM 40 MG TABLET.DR PO SCH (06:05)
[2018-10-01 08:00] VITALS: BP 117/54
[2018-10-01] MEDS: BETA CAROTENE/VIT C & E/MIN TABLET PO SCH ×2 (09:23→17:30)
[2018-10-01] MEDS: DILTIAZEM HCL CD 180 MG CAP.SR.24H PO SCH (09:23)
[2018-10-01] MEDS: MIRALAX 17 GM POWD.PACK PO SCH (09:24)
[2018-10-01] MEDS: ASPIRIN EC 81 MG TABLET.DR PO SCH (09:24)
[2018-10-01] MEDS: HYDROCODONE/APAP 5-325MG TABLET PO PRN (09:27)
[2018-10-01] MEDS: ENOXAPARIN SODIUM 40 MG/0.4 ML DISP.SYRIN SQ SCH (09:31)
--- NOTE | 2018-10-01 13:30 | NUR ---
INTERDISCIPLINARY TEAM CONFERENCE
[2018-10-01 16:00] VITALS: BP 96/53
[2018-10-01 19:49] VITALS: BP 100/53
[2018-10-01] MEDS: SIMVASTATIN 10 MG TABLET PO SCH (22:39)
--- NOTE | 2018-10-01 23:34 | NUR ---
Patient alert and oriented x 4. Family in room visiting patient. No C/O pain, distress, or SOB. Lt hip dressing C/D/I. On air mattress for pressure redistribution. Side rails up bilaterally for safety. Call light and frequently used items within reach. Will continue to monitor.
[2018-10-02 04:30] VITALS: BP 104/53
[2018-10-02] MEDS: PANTOPRAZOLE SODIUM 40 MG TABLET.DR PO SCH (06:02)
--- NOTE | 2018-10-02 06:20 | NUR ---
Patient slept well during shift. C/O pain in legs this morning. Morning shift to medicate. up to bathroom x1. All due medications given-tolerated well. Side rails up bilaterally for safety. Call light and frequently used items within reach. Will endorse to oncoming shift accordingly.
[2018-10-02] MEDS: HYDROCODONE/APAP 5-325MG TABLET PO PRN ×2 (06:55→21:59)
[2018-10-02 08:00] VITALS: BP 117/63
[2018-10-02] MEDS: ASPIRIN EC 81 MG TABLET.DR PO SCH (08:46)
[2018-10-02] MEDS: DILTIAZEM HCL CD 180 MG CAP.SR.24H PO SCH (08:47)
[2018-10-02] MEDS: MIRALAX 17 GM POWD.PACK PO SCH (08:47)
[2018-10-02] MEDS: BETA CAROTENE/VIT C & E/MIN TABLET PO SCH ×2 (08:48→17:53)
[2018-10-02] MEDS: ENOXAPARIN SODIUM 40 MG/0.4 ML DISP.SYRIN SQ SCH (08:51)
[2018-10-02 16:28] VITALS: BP 109/67
--- NOTE | 2018-10-02 19:00 | NUR ---
RECEIVED PATIENT ALERT ORIENTED, NO COMPLAIN OF PAIN, LEFT WITH INTACT DRESSING, NO BLEEDING NO REDNESS NOTED. ASSISTED TO BATHROOM FOR BLADDER ELIMINATIONS. CALL LIGHT WITHIN REACH.
[2018-10-02 20:03] VITALS: BP 107/55
[2018-10-02] MEDS: SIMVASTATIN 10 MG TABLET PO SCH (20:54)
--- NOTE | 2018-10-03 04:55 | NUR ---
PATIENT ALERT ORIENTED, NO SOB NO CHEST PAIN. L HIP DRESSING INTACT. PATIENT ASSISTED TO TOILET FOR BLADDER ELIMINATION. CONT ON PAIN MANAGEMENT. CALL LIGHT WITHIN REACH.
--- NOTE | 2018-10-03 05:21 | NUR ---
PATIENT HAS HEMORRHOIDS WITH SLIGHT BLEEDING NOTED, PATIENT DENIES PAIN AT THIS TIME. LEFT DRESSING INTACT. CALL LIGHT WITHIN REACH.
[2018-10-03 06:05] VITALS: BP 108/53
[2018-10-03] MEDS: PANTOPRAZOLE SODIUM 40 MG TABLET.DR PO SCH (06:25)
[2018-10-03] MEDS: BETA CAROTENE/VIT C & E/MIN TABLET PO SCH ×2 (08:40→16:20)
[2018-10-03] MEDS: ERGOCALCIFEROL 50,000 UNIT CAPSULE PO SCH (08:40)
[2018-10-03] MEDS: DILTIAZEM HCL CD 180 MG CAP.SR.24H PO SCH (08:41)
[2018-10-03] MEDS: HYDROCODONE/APAP 5-325MG TABLET PO PRN ×2 (08:41→21:49)
[2018-10-03] MEDS: ASPIRIN EC 81 MG TABLET.DR PO SCH (08:41)
[2018-10-03] MEDS: MIRALAX 17 GM POWD.PACK PO SCH (08:42)
[2018-10-03] MEDS: ENOXAPARIN SODIUM 40 MG/0.4 ML DISP.SYRIN SQ SCH (08:43)
[2018-10-03 08:59] VITALS: BP 108/57
--- NOTE | 2018-10-03 09:10 | NUR ---
Received pt. on bed, comfortable in no distress. A/Ox4 verbally responsive and able to make her needs known. Denies CP or SOB. All due medications administered as ordered and tolerated well. Lt hip dressing C/D/I. On air mattress for pressure redistribution. All pt. needs attended and met promptly. Safety measures in place. Call light and all frequently used items within pt. reach.
[2018-10-03 17:49] VITALS: BP 100/53
--- NOTE | 2018-10-03 18:25 | NUR ---
End of shift note: No sign of acute distress or SOB was noted. Kept pt clean and dry throughout this shift. Safety measures maintained. All needs attended and met promptly. Bed in low position, brake on, side rails up x2 as an enabler. Call light and all frequently used items within pt. reach. Will endorse to next shift accordingly
--- NOTE | 2018-10-03 19:42 | NUR ---
Received patient in bed. Alert and oriented x 4. Family at bedside for comfort. No C/O pain, distress, or SOB. Lt hip dressing C/D/I. On air mattress for pressure redistribution. Side rails up bilaterally for safety. Call light and frequently used items within reach. Will continue to monitor.
[2018-10-03 20:55] VITALS: BP 115/60
[2018-10-03] MEDS: SIMVASTATIN 10 MG TABLET PO SCH (21:49)
[2018-10-04 04:30] VITALS: BP 103/48
[2018-10-04] MEDS: PANTOPRAZOLE SODIUM 40 MG TABLET.DR PO SCH (06:02)
--- NOTE | 2018-10-04 06:39 | NUR ---
Patient slept throughout production supervisor off shift. All due medications given-tolerated well. Side rails up bilaterally for safety. Call light and frequently used items within reach. Will endorse to oncoming shift accordingly.
--- NOTE | 2018-10-04 07:33 | NUR ---
Patient noted resting in bed, no complaints of pain at this time, no signs of distress noted, call light in reach, bed locked and in lowest position, all needs met at this time
[2018-10-04 08:00] VITALS: BP 122/56
[2018-10-04] MEDS: BETA CAROTENE/VIT C & E/MIN TABLET PO SCH ×2 (08:32→17:15)
[2018-10-04] MEDS: HYDROCODONE/APAP 5-325MG TABLET PO PRN ×2 (08:32→22:44)
[2018-10-04] MEDS: DILTIAZEM HCL CD 180 MG CAP.SR.24H PO SCH (08:32)
[2018-10-04] MEDS: ASPIRIN EC 81 MG TABLET.DR PO SCH (08:32)
[2018-10-04] MEDS: MIRALAX 17 GM POWD.PACK PO SCH (08:33)
[2018-10-04] MEDS: ENOXAPARIN SODIUM 40 MG/0.4 ML DISP.SYRIN SQ SCH (08:43)
[2018-10-04 16:00] VITALS: BP 119/54
[2018-10-04 18:39] LABS: FERRITIN 119 ng/mL (8-252)
[2018-10-04 18:53] LABS: IRON, SERUM 60 ug/dL (50-175)
[2018-10-04 20:30] VITALS: BP 117/60
[2018-10-04] MEDS: SIMVASTATIN 10 MG TABLET PO SCH (20:30)
--- NOTE | 2018-10-05 00:55 | NUR ---
Received pt in bed, AAO x 4 resting comfortably and speaking to family member at bedside. No acute distress noted. Verbally responsive and able to make needs known. C/O mild 5/10 pain on left hip. PRN Sandwich given as ordered, tolerated well with good effect. All due medications given as ordered by MD, tolerated well. Assisted to the bathroom x 2 using walker x 1 assist. BM x 1. Assisted back to bed safely. Side rails up x 2, bed locked and in lowest position. All safety measures and fall precautions maintained. Call light and all personal belongings within reach. Will continue to monitor.
[2018-10-05 06:07] VITALS: BP 116/45
[2018-10-05] MEDS: PANTOPRAZOLE SODIUM 40 MG TABLET.DR PO SCH (06:20)
[2018-10-05 08:00] VITALS: BP 107/54
[2018-10-05] MEDS: BETA CAROTENE/VIT C & E/MIN TABLET PO SCH ×2 (08:36→17:04)
[2018-10-05] MEDS: ASPIRIN EC 81 MG TABLET.DR PO SCH (08:36)
[2018-10-05] MEDS: HYDROCORTISONE 1% RECTAL CREAM 28.35 GM TUBE RC SCH (08:37)
[2018-10-05] MEDS: DILTIAZEM HCL CD 180 MG CAP.SR.24H PO SCH (08:37)
[2018-10-05] MEDS: ENOXAPARIN SODIUM 40 MG/0.4 ML DISP.SYRIN SQ SCH (08:43)
[2018-10-05] MEDS: MIRALAX 17 GM POWD.PACK PO SCH (09:19)
--- NOTE | 2018-10-05 10:39 | NUR ---
Patient seen and examined by Dr. Hopson and gave order for Melatonin 3mg PO HS PRN.
[2018-10-05] MEDS: HYDROCODONE/APAP 5-325MG TABLET PO PRN (12:40)
--- NOTE | 2018-10-05 15:59 | NUR ---
Received a call back from Dr. Blanco office c/o PA Marlyn Loza, informed PA that this is day 14 since surgery and patient still has original dressing on. Per PA may do dressing change today then PRN surgical dressing change and will keep follow up appointment with Dr. Blanco on 10/13/18 as scheduled
[2018-10-05 16:00] VITALS: BP 109/50
[2018-10-05 20:28] VITALS: BP 110/67
[2018-10-05] MEDS: SIMVASTATIN 10 MG TABLET PO SCH (22:25)
[2018-10-05] MEDS: MELATONIN 3 MG TABLET PO PRN (22:25)
--- NOTE | 2018-10-05 23:41 | NUR ---
Patient alert and oriented x 4. Family at bedside. Dressing changed per MD order, photo taken of jojo. [place] C/D/I. No C/O pain, distress, or SOB. On air mattress for pressure redistribution. Side rails up bilaterally for safety. Call light and frequently used items within reach. Will continue to monitor.
[2018-10-06 05:15] VITALS: BP 103/55
[2018-10-06] MEDS: PANTOPRAZOLE SODIUM 40 MG TABLET.DR PO SCH (06:06)
--- NOTE | 2018-10-06 06:41 | NUR ---
Patient slept fitfully during the night. Melatonin offered, did not help patient sleep. All due medications given-tolerated well. Up to bathroom x 1. Side rails up bilaterally for safety. Call light and frequently used items within reach. Will endorse to oncoming shift accordingly.
[2018-10-06 06:44] LABS: BASOPHILS % (AUTO) 0.5 % (0.0-2.0); EOSINOPHILS # (AUTO) 0.1 K/uL (0.0-0.7); HEMATOCRIT 26.9 % (31.2-41.9); HEMOGLOBIN 8.7 g/dL (10.9-14.3); LYMPHOCYTES # (AUTO) 0.8 K/uL (20.0-40.0); LYMPHOCYTES % (AUTO) 14.7 % (20.5-51.5); MEAN CORPUSCULAR HEMOGLOBIN 22.9 uug (24.7-32.8); MEAN CORPUSCULAR HGB CONC 33 g/dL (32.3-35.6); MEAN CORPUSCULAR VOLUME 70.5 fL (75.5-95.3); MONOCYTES # (AUTO) 0.3 K/uL (2.0-10.0); MONOCYTES % (AUTO) 6.6 % (0.0-11.0); NEUTROPHILS % (AUTO) 76.2 % (38.5-71.5); PLATELET COUNT (AUTO) 335 K/uL (179-408); RED BLOOD CELL COUNT(AUTO) 3.81 MIL/uL (3.63-4.92); WHITE BLOOD COUNT (AUTO) 5.2 K/uL (3.8-11.8)
[2018-10-06 06:53] LABS: CARBON DIOXIDE 27 mmol/L (21-32); CHLORIDE 106 mmol/L (98-107); CREATININE 0.8 mg/dL (0.6-1.3); GLUCOSE 90 mg/dL (74-106); POTASSIUM 4.4 mmol/L (3.5-5.1); UREA NITROGEN, BLOOD 23 mg/dL (7-18)
--- NOTE | 2018-10-06 07:55 | NUR ---
Patient awake, alert, sitting up on the wheelchair, not in any form of distress. She denies any pain or discomfort at this time. Call light and frequently used items placed within reach
[2018-10-06 08:00] VITALS: BP 109/62
[2018-10-06] MEDS: DILTIAZEM HCL CD 180 MG CAP.SR.24H PO SCH (09:45)
[2018-10-06] MEDS: ASPIRIN EC 81 MG TABLET.DR PO SCH (11:03)
[2018-10-06] MEDS: MIRALAX 17 GM POWD.PACK PO SCH (11:08)
[2018-10-06] MEDS: BETA CAROTENE/VIT C & E/MIN TABLET PO SCH ×2 (11:09→16:56)
[2018-10-06] MEDS: HYDROCORTISONE 1% RECTAL CREAM 28.35 GM TUBE RC SCH (11:10)
[2018-10-06] MEDS: ENOXAPARIN SODIUM 40 MG/0.4 ML DISP.SYRIN SQ SCH (11:11)
--- NOTE | 2018-10-06 11:15 | NUR ---
[place] Transfer Car Operator not responding so was not able to administer due medications on time
[2018-10-06 17:24] VITALS: BP 113/59
--- NOTE | 2018-10-06 19:35 | NUR ---
Patient received in bed, watching TV. Alert and oriented x 4. No C/O pain, SOB, or distress at this time. Patient concerned about impending D/ C this Thursday. Side rails up bilaterally for safety. Call light and frequently used items within reach. Will continue to monitor.
[2018-10-06 21:01] VITALS: BP 111/60
[2018-10-06] MEDS: MELATONIN 3 MG TABLET PO PRN (22:00)
[2018-10-06] MEDS: SIMVASTATIN 10 MG TABLET PO SCH (22:00)
[2018-10-07 04:41] VITALS: BP 115/59
[2018-10-07] MEDS: PANTOPRAZOLE SODIUM 40 MG TABLET.DR PO SCH (06:05)
--- NOTE | 2018-10-07 06:44 | NUR ---
Patient slept well during the night. All due medications given-tolerated well. Up to bathroom x 2. Side rails up bilaterally for safety. Call light and frequently used items within reach. Will endorse to oncoming shift accordingly.
[2018-10-07] MEDS: ASPIRIN EC 81 MG TABLET.DR PO SCH (08:34)
[2018-10-07] MEDS: BETA CAROTENE/VIT C & E/MIN TABLET PO SCH ×2 (08:35→16:28)
[2018-10-07] MEDS: MIRALAX 17 GM POWD.PACK PO SCH (08:35)
[2018-10-07] MEDS: HYDROCORTISONE 1% RECTAL CREAM 28.35 GM TUBE RC SCH (08:36)
[2018-10-07] MEDS: DILTIAZEM HCL CD 180 MG CAP.SR.24H PO SCH (08:36)
[2018-10-07] MEDS: ENOXAPARIN SODIUM 40 MG/0.4 ML DISP.SYRIN SQ SCH (08:40)
[2018-10-07] MEDS: HYDROCODONE/APAP 5-325MG TABLET PO PRN (08:41)
[2018-10-07 09:04] VITALS: BP 120/64
--- NOTE | 2018-10-07 10:23 | NUR ---
Received pt. on bed, comfortable in no distress. A/Ox4 verbally responsive and able to make her needs known. Denies CP or SOB. All due medications administered as ordered and tolerated well. Lt hip surgical incision covered with bordered gauze C/D/I. On air mattress for pressure redistribution, no skin breakdown. X1 BM this AM. All pt. needs attended and met promptly. Safety measures in place. Call light and all frequently used items within pt. reach.
[2018-10-07 16:31] VITALS: BP 91/54
[2018-10-07 19:44] VITALS: BP 123/62
--- NOTE | 2018-10-07 19:45 | NUR ---
Patient received in bed, watching TV. Family at bedside. Alert and oriented x 4. No C/O pain, SOB, or distress at this time. Patient requesting night sleeping aid. States that she has taken Restoril 15 mg before, and would like to take it again. Side rails up bilaterally for safety. Call light and frequently used items within reach. Will continue to monitor.
--- NOTE | 2018-10-07 21:44 | NUR ---
Spoke with health outcomes liaison Dr. Hopson. TEJ to give Restoril 15 mg once, to aid with sleep. Will continue to monitor.
[2018-10-07] MEDS ORDERED: TEMAZEPAM 15 MG CAPSULE PO ONE (21:45)
[2018-10-07] MEDS: SIMVASTATIN 10 MG TABLET PO SCH (21:57)
[2018-10-08 05:47] VITALS: BP 115/60
[2018-10-08] MEDS: PANTOPRAZOLE SODIUM 40 MG TABLET.DR PO SCH (06:17)
--- NOTE | 2018-10-08 06:47 | NUR ---
Patient slept well during the night. Restoril given, and worked well. All due medications given-tolerated well. Up to bathroom x 2. Side rails up bilaterally for safety. Call light and frequently used items within reach. Will endorse to oncoming shift accordingly.
[2018-10-08 07:23] LABS: BASOPHILS % (AUTO) 0.3 % (0.0-2.0); EOSINOPHILS # (AUTO) 0.1 K/uL (0.0-0.7); EOSINOPHILS % (AUTO) 1.5 % (0.0-7.0); HEMATOCRIT 27.2 % (31.2-41.9); HEMOGLOBIN 8.7 g/dL (10.9-14.3); LYMPHOCYTES # (AUTO) 0.8 K/uL (20.0-40.0); LYMPHOCYTES % (AUTO) 14.2 % (20.5-51.5); MEAN CORPUSCULAR HEMOGLOBIN 22.7 uug (24.7-32.8); MEAN CORPUSCULAR HGB CONC 32 g/dL (32.3-35.6); MEAN CORPUSCULAR VOLUME 71.3 fL (75.5-95.3); MONOCYTES # (AUTO) 0.4 K/uL (2.0-10.0); MONOCYTES % (AUTO) 6.9 % (0.0-11.0); NEUTROPHILS # (AUTO) 4.5 K/uL (1.8-8.9); NEUTROPHILS % (AUTO) 77.1 % (38.5-71.5); PLATELET COUNT (AUTO) 334 K/uL (179-408); RED BLOOD CELL COUNT(AUTO) 3.81 MIL/uL (3.63-4.92); WHITE BLOOD COUNT (AUTO) 5.9 K/uL (3.8-11.8)
[2018-10-08 07:30] LABS: CARBON DIOXIDE 27 mmol/L (21-32); CHLORIDE 107 mmol/L (98-107); CREATININE 0.8 mg/dL (0.6-1.3); GLUCOSE 89 mg/dL (74-106); POTASSIUM 4.3 mmol/L (3.5-5.1); UREA NITROGEN, BLOOD 22 mg/dL (7-18)
[2018-10-08] MEDS: HYDROCODONE/APAP 5-325MG TABLET PO PRN ×2 (07:56→20:52)
[2018-10-08] MEDS: ASPIRIN EC 81 MG TABLET.DR PO SCH (07:56)
[2018-10-08] MEDS: BETA CAROTENE/VIT C & E/MIN TABLET PO SCH ×2 (07:57→18:30)
[2018-10-08] MEDS: DILTIAZEM HCL CD 180 MG CAP.SR.24H PO SCH (07:57)
[2018-10-08] MEDS: MIRALAX 17 GM POWD.PACK PO SCH (07:57)
[2018-10-08 07:59] LABS: LYMPHOCYTES % (MANUAL) 13 % (20-40); MONOCYTES % (MANUAL) 1 % (2-10); NEUTROPHILS % (MANUAL) 86 % (42-75)
[2018-10-08] MEDS: HYDROCORTISONE 1% RECTAL CREAM 28.35 GM TUBE RC SCH (08:03)
[2018-10-08] MEDS: ENOXAPARIN SODIUM 40 MG/0.4 ML DISP.SYRIN SQ SCH (08:05)
[2018-10-08 08:55] VITALS: BP 109/65
[2018-10-08 16:37] VITALS: BP 106/53
[2018-10-08 20:29] VITALS: BP 112/60
[2018-10-08] MEDS: SIMVASTATIN 10 MG TABLET PO SCH (20:52)
--- NOTE | 2018-10-08 23:18 | NUR ---
Received pt in bed, AAO x 4 watching television. No acute distress noted. Verbally responsive and able to make needs known. Denies pain or discomfort at this time. All safety measures and fall precautions maintained. Call light and all personal belongings within reach. All due medications given as ordered, tolerated well. PRN [place] given as ordered, tolerated well with good effect. Will continue to monitor.
[2018-10-09 05:35] VITALS: BP 114/72
[2018-10-09] MEDS: PANTOPRAZOLE SODIUM 40 MG TABLET.DR PO SCH (06:18)
[2018-10-09 07:30] VITALS: BP 112/54
[2018-10-09] MEDS: ASPIRIN EC 81 MG TABLET.DR PO SCH (10:04)
[2018-10-09] MEDS: MIRALAX 17 GM POWD.PACK PO SCH (10:04)
[2018-10-09 10:05] VITALS: BP 114/72
[2018-10-09] MEDS: BETA CAROTENE/VIT C & E/MIN TABLET PO SCH ×2 (10:05→17:32)
[2018-10-09] MEDS: DILTIAZEM HCL CD 180 MG CAP.SR.24H PO SCH (10:05)
[2018-10-09] MEDS: HYDROCORTISONE 1% RECTAL CREAM 28.35 GM TUBE RC SCH (10:09)
[2018-10-09] MEDS: ENOXAPARIN SODIUM 40 MG/0.4 ML DISP.SYRIN SQ SCH (10:10)
[2018-10-09] MEDS: HYDROCODONE/APAP 5-325MG TABLET PO PRN (13:10)
--- NOTE | 2018-10-09 18:12 | NUR ---
FAMILY HERE TO PICK HER UP FOR D/C TO HOME. D/C INSTRUCTIONS GIVEN TO PT AND HER DAUGHTER VERBALIZED UNDERSTANDING. D/C ORDER ON FILE. SKIN PICS TAKEN. SHE LEFT WITH FWW, BSC AND W/C.
== END 2018-10-09 18:00 | disposition home health service (06) | DRG 560 ==
PROVIDERS: ADMIT Physical Medicine & Rehabilitation Pain Medicine; ATTEND Physical Medicine & Rehabilitation Pain Medicine
PROC: 30233N1 Transfusion of Nonautologous Red Blood Cells into Peripheral Vein, Percutaneous Approach (ICD-10-PCS; principal; 2018-09-27)
DX: M80.052D Age-related osteoporosis with current pathological fracture, left femur, subsequent encounter for fracture with routine healing (principal); D68.59 Other primary thrombophilia; I48.92 Unspecified atrial flutter; I47.1 Supraventricular tachycardia; D62 Acute posthemorrhagic anemia; S52.502D Unspecified fracture of the lower end of left radius, subsequent encounter for closed fracture with routine healing; Z91.81 History of falling; D50.9 Iron deficiency anemia, unspecified; I10 Essential (primary) hypertension; K21.9 Gastro-esophageal reflux disease without esophagitis; R29.6 Repeated falls; R26.9 Unspecified abnormalities of gait and mobility; R53.1 Weakness; S22.43XD Multiple fractures of ribs, bilateral, subsequent encounter for fracture with routine healing; W18.30XD Fall on same level, unspecified, subsequent encounter; F41.9 Anxiety disorder, unspecified; H35.30 Unspecified macular degeneration; K59.03 Drug induced constipation; T40.605A Adverse effect of unspecified narcotics, initial encounter; K64.4 Residual hemorrhoidal skin tags; M19.90 Unspecified osteoarthritis, unspecified site; Z79.899 Other long term (current) drug therapy; R79.89 Other specified abnormal findings of blood chemistry; Z88.1 Allergy status to other antibiotic agents; Z88.2 Allergy status to sulfonamides; I48.0 Paroxysmal atrial fibrillation; R60.0 Localized edema; E88.81 Metabolic syndrome and other insulin resistance
CPT/HCPCS: 36415; 73502; 83550; 83735; 84100; 85018; 85025; 86850; 86900; 86901; 86920; 92523; 92526; 92610; 97110; 97112; 97116; 97165; 97530; 97535; J1650; J7030; P9016-BL; P9021